=== PATIENT | female | born 1955 ===

== ENCOUNTER → 2018-06-05 | Outpatient (REF) | payer OTHER ==
[2018-06-05 15:46] LABS: BASO # 0.1 10^3/uL (0.0-0.2); BASO % 1.1 % (0.0-1.0); EOS # 0.1 10^3/uL (0.0-0.50); EOS % 1.9 % (0.0-3.0); HEMATOCRIT 41.4 % (36.0-47.0); HEMOGLOBIN 13.7 g/dl (12.0-15.5); LYMPH % 40.9 % (24.0-44.0); MEAN CORPUSCULAR HEMOGLOBIN 28.8 pg (27.0-33.0); MEAN CORPUSCULAR HGB CONC 33.1 g/dl (32.0-36.5); MEAN CORPUSCULAR VOLUME 87.2 fl (80.0-96.0); MONO # 0.5 10^3/uL (0.0-0.8); MONO % 6.2 % (0.0-5.0); NEUTROPHILS # 3.6 10^3/uL (1.8-7.7); NEUTROPHILS % 49.6 % (36.0-66.0); PLATELET COUNT, AUTOMATED 282 10^3/uL (150-450); RED BLOOD COUNT 4.75 10^6/uL (4.00-5.40); WHITE BLOOD COUNT 7.3 10^3/uL (4.0-10.0)
[2018-06-05 15:57] LABS: ALBUMIN 3.9 GM/DL (3.2-5.2); ALT/SGPT 25 U/L (12-78); BILIRUBIN,TOTAL 0.4 MG/DL (0.2-1.0); BLOOD UREA NITROGEN 21 MG/DL (7-18); CALCIUM LEVEL 8.9 MG/DL (8.8-10.2); CARBON DIOXIDE LEVEL 24 MEQ/L (21-32); CHLORIDE LEVEL 112 MEQ/L (98-107); CREATININE FOR GFR 0.81 MG/DL (0.55-1.30); GLOMERULAR FILTRATION RATE > 60.0 (>45); GLUCOSE, FASTING 98 MG/DL (70-100); RHEUMATOID FACTOR QUANT < 10.0 IU/ML (<15.0); SODIUM LEVEL 143 MEQ/L (136-145); THYROID STIMULATING HORMONE 0.419 uIU/ML (0.358-3.740); TOTAL PROTEIN 6.6 GM/DL (6.4-8.2)
[2018-06-05 15:58] LABS: FOLATE 19.5 NG/ML (>5.4)
[2018-06-05 16:19] LABS: ERYTHROCYTE SEDIMENTATION RATE 6 mm/hr (0-30)
[2018-06-07 13:24] LABS: ALBUMIN 4.16 GM/DL (3.29-5.55); ALPHA-1-GLOBULIN % 3.9 % (2.9-4.9); ALPHA-1-GLOBULINS 0.26 GM/DL (0.17-0.41); ALPHA-2-GLOBULINS 0.79 GM/DL (0.42-0.99); BETA-1-GLOBULINS 0.38 GM/DL (0.28-0.60); BETA-1-GLOBULINS % 5.8 % (4.7-7.2); BETA-2-GLOBULINS 0.35 GM/DL (0.19-0.55); BETA-2-GLOBULINS % 5.3 % (3.2-6.5); GAMMA GLOBULINS 0.66 GM/DL (0.65-1.58)
[2018-06-08 10:59] LABS: VITAMIN B12 LEVEL 864 PG/ML (232-1245)
[2018-06-09 15:32] LABS: CERULOPLASMIN 23.8 mg/dL (19.0-39.0); VITAMIN B1 LEVEL WHOLE BLOOD 114.7 nmol/L (66.5-200.0); VITAMIN B6,PYRIDOXAL PHOSPHATE 12.4 ug/L (2.0-32.8)
== END ==
LOC: M LABNEURO 12:42
PROVIDERS: ATTEND Psychiatry & Neurology Neurology
DX: G62.9 Polyneuropathy, unspecified (principal)

== ENCOUNTER → 2018-06-20 | Outpatient (REF) | payer OTHER ==
[2018-06-25 14:16] LABS: VITAMIN E(ALPHA TOCOPHEROL) 17.8 mg/L (9.0-29.0)
== END ==
LOC: M LAB REF 10:45
PROVIDERS: ATTEND Psychiatry & Neurology Neurology
DX: G62.9 Polyneuropathy, unspecified (principal)

== ENCOUNTER → 2019-12-11 | Outpatient (CLI) | payer MEDICARE, BC, OTHER ==
--- NOTE | 2020-01-21 15:12 | REP ---
CT ABDOMEN AND PELVIS WITHOUT CONTRAST HISTORY: Chronic kidney disease stage 2, calculus of kidney. Age-related osteoporosis without current pathologic fracture. History of left-sided renal stone and left hydronephrosis. This report was delayed due to a protracted episode of computer network disruption experienced by this facility and by our attempts to retrieve prior sonography from an outside facility. Prior renal ultrasound was obtained and is compared dated 03/08/2019. CT FINDINGS: Preliminary digital supervisor wet end radiograph is unremarkable. Normal bowel gas pattern. The lung bases show minimal linear fibrosis. No pleural effusion is seen. The liver and the spleen are normal in size and homogeneous in texture. Normal adrenal glands are present bilaterally. There are scattered diverticulosis affecting the left colon. Normal appendix is seen. Small and large intestinal bowel loops are unremarkable. The uterus is surgically absent. Urinary bladder is unremarkable. No bladder calculus is seen. There is no evidence of intrarenal nephrolithiasis. There are multiple small parapelvic cysts in the left kidney. There is no evidence of left-sided hydronephrosis. No right-sided hydronephrosis is seen. No mass lesion is observed. No abdominal wall defect is seen. Bone window settings show no bony destructive lesion. IMPRESSION: Multiple parapelvic cysts left kidney. No hydronephrosis seen. No intrarenal calculus is observed. Left colonic diverticulosis. No acute abdominal or pelvis abnormality. Status post hysterectomy. [facility]
== END ==
LOC: M RAD 11:06
PROVIDERS: ATTEND Internal Medicine Nephrology
DX: N18.2 Chronic kidney disease, stage 2 (mild) (principal); N20.0 Calculus of kidney; M81.0 Age-related osteoporosis without current pathological fracture

== ENCOUNTER → 2023-12-15 | Outpatient (REF) | payer MEDICARE, BC, OTHER | LOC: M LAB REF 16:43 | PROVIDERS: ATTEND Internal Medicine Nephrology | DX: N30.01 Acute cystitis with hematuria (principal) ==